=== PATIENT | female | born 1935 | race Caucasian/White ===

== ENCOUNTER 2017-12-19 18:02 | Inpatient (IN) | payer MEDICARE, OTHER ==
[~2017-12-19] VITALS: Ht 167.6 cm; Wt 64.9 kg
--- NOTE | ~2017-12-19 | EC ---
PATIENT:TRENT COX DATE OF SERVICE: 12/19/17 SEX: F MEDICAL RECORD: [id number] DATE OF : 33 LOCATION:D.M2 D.212 AGE OF PATIENT: 82 ADMISSION DATE: 12/19/17 REFERRING PHYSICIAN: INTERPRETING PHYSICIAN: MAYUR LONGORIA MD ECHOCARDIOGRAM REPORT ECHO CHARGES 4 ECHO COMPLETE Date: CLINICAL DIAGNOSIS: CHF ECHOCARDIOGRAPHIC MEASUREMENTS (adult normal given) AC root (d.<3.7cm) 3.6 cm LV Septum d (<1.2 cm> 14.5 cm Valve Excursion 1.4 cm LV Septum (systole) 1.9 cm Left Atria (s.<4.0cm> 4.0 cm LVPW d(<1.2cm) 1.5 cm RV (d.<2.3cm) 3.0 cm LVPW (sytole) 1.8 cm LV diastole(<5.6CM) 4.6 cm MV E-F(>70mm/sec) cm LV systole 3.4 cm LVOT Diameter 1.7 cm MV exc.(>10mm) 1.2 cm Est.ejection fraction (50-75%) % DOPPLER: LVIT cm/sec A 181 cm/sec E 150 cm/sec LA cm/sec RVSP 46 mmHg LVOT 169 cm/sec AOP1/2T m/s Asc. Ao 191 cm/sec RVOT 108 cm/sec RA cm/sec PA 169 cm/sec AV Gradient Peak 14.66mmHg AV Mean 8.19 mmHg AV Area 1.6 cm MV Gradient Peak 18.31mmHg MV Mean 7.72 mmHg MV Area cm COMMENTS: Supply Chain Associate: 2 ELVIN CLARK Soft Sugar Supervisor: 3 Dr. Marquez TAPE# PACS Pericardial Effusion N DATE OF SERVICE: 12/20/2017 Adequate 2-D echo, color flow and spectral Doppler, and M-mode. LVH is present. LV internal dimensions are normal. Wall motion is normal. EF is greater than 55%. Aortic valve sclerosis with no evidence of stenosis on Doppler interrogation. Left atrium is normal at 4.0 cm. Mitral valve is thickened. Mitral annular calcification and mild mitral stenosis. Right-sided chambers are grossly normal. Mild TR by color flow imaging. TRANSINT:[id number] Voice Confirmation ID: [id number] DOCUMENT ID: [id number] ECHOCARDIOGRAM REPORT [id number] TRENT COX 12/25/2017 Edited for date of service, dmm. MAYUR LONGORIA MD at 1155 CC: [id number] DICTATION DATE: 12/21/17910 GEOSCIENCE LABORATORY TECHNICIAN: 12/21/17 1407 DIS IN 12/23/17 [id number] [place] [address]
[2017-12-19] MEDS ORDERED: TOPROL XL25 MG PO (18:17)
[2017-12-19] MEDS ORDERED: LIPITOR80 MG PO (18:17)
[2017-12-19] MEDS ORDERED: PLAVIX75 MG PO (18:18)
[2017-12-19] MEDS ORDERED: CATAPRES TTS-20.2 MG TD (18:18)
[2017-12-19] MEDS ORDERED: BAYER CHEWABLE81 MG PO (18:18)
[2017-12-19] MEDS ORDERED: COLACE100 MG PO (18:19)
[2017-12-19] MEDS ORDERED: HYDROCHLOROTHIA25 MG PO (18:19)
[2017-12-19] MEDS ORDERED: NORVASC10 MG PO (18:20)
[2017-12-19] MEDS ORDERED: MIRALAX17 GM PO (18:20)
[2017-12-19] MEDS ORDERED: CLARITIN 10 MG10 MG PO (18:21)
[2017-12-19] MEDS ORDERED: SYMBICORT 16010.2 GM INH (18:21)
[2017-12-19] MEDS ORDERED: CATAPRES0.2 MG PO (18:22)
[2017-12-19 21:05] VITALS: BP 115/63
[2017-12-20] VITALS (7 sets, daily range): BP systolic 100–185; BP diastolic 42–72; Ht 167.6 cm; Wt 64.9 kg
[2017-12-20 10:18] LABS: APPEARANCE HAZY (CLEAR); BILIRUBIN NEGATIVE (NEGATIVE); COLOR YELLOW (YELLOW); GLUCOSE NEGATIVE (NEGATIVE); KETONE NEGATIVE (NEGATIVE); NITRITE NEGATIVE (NEGATIVE); PROTEIN 2+ mg/dL (NEGATIVE); UROBILINOGEN NORMAL (NORMAL)
[2017-12-20 10:22] LABS: BASOPHILS 0.9 % (0-2); EOSINOPHILS 5.2 % (0-7); HEMATOCRIT 34.5 % (36.0-48.0); HEMOGLOBIN 11.2 g/dL (12-16); IMMATURE GRANULOCYTES 0.4 % (0-5); LYMPHOCYTES 22.9 % (15-50); MCH 28.4 pg (26.0-34.0); MCHC 32.5 g/dL (31.0-37.0); MCV 87.6 fL (80.0-100.0); MEAN PLATELET VOLUME 11.2 fL (7.4-10.4); MONOCYTES 8.3 % (2-11); NEUTROPHILS 62.3 % (40-80); PLATELET COUNT 235 10x3/uL (130-400); RBC 3.94 10x6/uL (4.00-5.40); WBC 6.8 10x3/uL (4.8-10.8)
[2017-12-20 10:28] LABS: INR 1.07 (0.85-1.17); PROTIME 13.5 SECONDS (11.6-15.0)
[2017-12-20 10:29] LABS: AMORPHOUS SEDIMENT <1+ /lpf (NONE SEEN); BACTERIA MODERATE /hpf (NONE SEEN); EPITHELIAL CELLS 0-5 /hpf (0-5); GRANULAR CAST OCC /lpf (NONE SEEN); RED CELLS - URINE OCC /hpf (0-5); WAXY CAST RARE /lpf (NONE SEEN); WHITE CELLS - URINE 0-5 /hpf (0-5)
[2017-12-20 10:40] LABS: ALBUMIN 2.8 g/dL (3.4-5.0); BILIRUBIN - TOTAL 0.34 mg/dL (0.2-1.3); CALCIUM 8.3 mg/dL (8.5-10.1); CARBON DIOXIDE 24.8 mmol/L (21.0-32.0); CREATININE - SERUM 1.7 mg/dL (0.6-1.3); MAGNESIUM - SERUM 1.8 mg/dL (1.8-2.4); PROTEIN - SERUM 6.3 g/dL (6.4-8.2)
[2017-12-20 10:43] LABS: POTASSIUM - SERUM 2.8 mmol/L (3.5-5.1)
[2017-12-20 13:07] LABS: % SATURATION 31 % (15-55); IRON 52 ug/dl (35-150); TOTAL IRON BIND CAPACITY 163 ug/dl (260-445); UNSAT IRON BIND CAPACITY 111 ug/dl (150-375)
[2017-12-21] VITALS (7 sets, daily range): BP systolic 103–176; BP diastolic 47–62
[2017-12-21 05:27] LABS: BASOPHILS 0.7 % (0-2); EOSINOPHILS 8.3 % (0-7); HEMATOCRIT 31.7 % (36.0-48.0); HEMOGLOBIN 10.2 g/dL (12-16); IMMATURE GRANULOCYTES 0.5 % (0-5); LYMPHOCYTES 32.4 % (15-50); MCH 28.6 pg (26.0-34.0); MCHC 32.2 g/dL (31.0-37.0); MCV 88.8 fL (80.0-100.0); MEAN PLATELET VOLUME 11.3 fL (7.4-10.4); MONOCYTES 10.2 % (2-11); NEUTROPHILS 47.9 % (40-80); PLATELET COUNT 208 10x3/uL (130-400); RBC 3.57 10x6/uL (4.00-5.40); RDW 13.4 % (11.5-14.5); WBC 5.7 10x3/uL (4.8-10.8)
[2017-12-21 05:51] LABS: ANION GAP 13.2 mmol/L (8-16); CALCIUM 7.7 mg/dL (8.5-10.1); CARBON DIOXIDE 24.2 mmol/L (21.0-32.0); CREATININE - SERUM 1.8 mg/dL (0.6-1.3); POTASSIUM - SERUM 3.4 mmol/L (3.5-5.1)
[2017-12-21 05:54] LABS: INR 1.15 (0.85-1.17); PROTIME 14.2 SECONDS (11.6-15.0)
[2017-12-22 04:00] VITALS: BP 159/62
[2017-12-22 06:05] LABS: BASOPHILS 0.8 % (0-2); HEMATOCRIT 30.5 % (36.0-48.0); HEMOGLOBIN 9.7 g/dL (12-16); IMMATURE GRANULOCYTES 0.5 % (0-5); LYMPHOCYTES 28.5 % (15-50); MCH 28.4 pg (26.0-34.0); MCHC 31.8 g/dL (31.0-37.0); MCV 89.2 fL (80.0-100.0); MEAN PLATELET VOLUME 10.7 fL (7.4-10.4); MONOCYTES 9.8 % (2-11); NEUTROPHILS 53.4 % (40-80); PLATELET COUNT 193 10x3/uL (130-400); RBC 3.42 10x6/uL (4.00-5.40); RDW 13.7 % (11.5-14.5)
[2017-12-22 06:19] LABS: ANION GAP 11.9 mmol/L (8-16); CALCIUM 7.6 mg/dL (8.5-10.1); CARBON DIOXIDE 22.9 mmol/L (21.0-32.0); CREATININE - SERUM 1.5 mg/dL (0.6-1.3); POTASSIUM - SERUM 3.8 mmol/L (3.5-5.1)
[2017-12-22 07:11] LABS: INR 1.16 (0.85-1.17); PROTIME 14.4 SECONDS (11.6-15.0)
[2017-12-22] MEDS ORDERED: LUMIGAN 0.01%2.5 ML EACH EYE (07:53)
[2017-12-22 08:35] VITALS: BP 178/53
[2017-12-22 11:40] VITALS: BP 105/60
[2017-12-22 15:34] VITALS: BP 156/67
[2017-12-22] MEDS ORDERED: COUMADIN7.5 MG PO (16:27)
[2017-12-22 19:00] VITALS: BP 202/55
[2017-12-23 04:00] VITALS: BP 169/57
[2017-12-23 05:09] LABS: BASOPHILS 0.9 % (0-2); EOSINOPHILS 8.1 % (0-7); HEMATOCRIT 30.1 % (36.0-48.0); HEMOGLOBIN 9.6 g/dL (12-16); IMMATURE GRANULOCYTES 0.4 % (0-5); LYMPHOCYTES 31.1 % (15-50); MCH 28.3 pg (26.0-34.0); MCHC 31.9 g/dL (31.0-37.0); MCV 88.8 fL (80.0-100.0); MEAN PLATELET VOLUME 11.1 fL (7.4-10.4); MONOCYTES 10.1 % (2-11); NEUTROPHILS 49.4 % (40-80); PLATELET COUNT 189 10x3/uL (130-400); RBC 3.39 10x6/uL (4.00-5.40); WBC 5.4 10x3/uL (4.8-10.8)
[2017-12-23 05:22] LABS: ANION GAP 13.5 mmol/L (8-16); CARBON DIOXIDE 23.6 mmol/L (21.0-32.0); CREATININE - SERUM 1.4 mg/dL (0.6-1.3); POTASSIUM - SERUM 4.1 mmol/L (3.5-5.1)
[2017-12-23 05:26] LABS: INR 1.89 (0.85-1.17); PROTIME 21.1 SECONDS (11.6-15.0)
[2017-12-23 08:27] VITALS: BP 111/56
[2017-12-23 09:16] LABS: FOLATE (FOLIC ACID) - SERUM 10.9 ng/mL (>3.0)
== END 2017-12-23 10:15 | DRG 65 ==
LOC: D.M2 18:02
PROVIDERS: Internal Medicine Nephrology
DX: I63.9 Cerebral infarction, unspecified (principal); N39.0 Urinary tract infection, site not specified; N17.9 Acute kidney failure, unspecified; G81.94 Hemiplegia, unspecified affecting left nondominant side; I11.0 Hypertensive heart disease with heart failure; I50.9 Heart failure, unspecified; E78.5 Hyperlipidemia, unspecified; I25.10 Atherosclerotic heart disease of native coronary artery without angina pectoris; K21.9 Gastro-esophageal reflux disease without esophagitis; D64.9 Anemia, unspecified; E87.6 Hypokalemia; R40.2363 Coma scale, best motor response, obeys commands, at hospital admission; R40.2143 Coma scale, eyes open, spontaneous, at hospital admission; R40.2253 Coma scale, best verbal response, oriented, at hospital admission